=== PATIENT | female | born 1965 | race American Indian/Alaskan Native ===

== ENCOUNTER 2017-10-25 08:37 | Emergency (ER) | payer OTHER ==
--- NOTE | 2017-10-25 08:46 | PDOC ---
History of Present Illness - General Stated Complaint: ABD PAIN Time Seen by Provider: 10/25/17 08:41 History Source: Patient - History of Present Illness Timing/Duration: reports: constant, other (x 1 week) Past History - Past Medical History Allergies/Adverse Reactions: Allergies Allergy/AdvReac Type Severity Reaction Status Date / Time No Known Allergies Allergy Verified 10/25/17 08:50 Home Medications: Ambulatory Orders Cephalexin [Keflex] 500 mg PO BID #14 capsule 10/25/17 Review of Systems - Review of Systems Constitutional: No: Chills, Fever, Malaise, Weakness ABD/GI: No: Nausea, Vomiting : No: Burning, Dysuria, Discharge, Frequency, Flank Pain, Hematuria Musculoskeletal: No: Back Pain *Physical Exam - Physical Exam General Appearance: Yes: Appropriately Dressed. No: Apparent Distress HEENT: positive: Normal Voice Neck: positive: Supple Respiratory/Chest: negative: Respiratory Distress Gastrointestinal/Abdominal: positive: Soft. negative: Tender Musculoskeletal: negative: CVA Tenderness Integumentary: positive: Dry, Warm Neurologic: positive: Fully Oriented, Alert, Normal Mood/Affect ED Treatment Course - LABORATORY CBC & Chemistry Diagram: 10/25/17 09:05 10/25/17 09:05 Medical Decision Making - Medical Decision Making 10/25/17 08:45 52-year-old female status post BAYLEE-BSO w/ chemo/XRT for ovarian cancer in 2007 while in [facility], brought in by family for foul odor to urine 1 week. No dysuria , frequency, hematuria, abdominal, flank pain, nausea, vomiting, fever or chills. Patient states she feels well otherwise See exam R/o UTI -labs -ua -cx 10/25/17 10:22 Labs unremarkable. us w/ 2+ bld and <1 WBC. As patient symptomatic, will treat. Urine culture sent. Return precautions given. Patient to follow-up with PMD this week *DC/Admit/Observation/Transfer Diagnosis at time of Disposition: Foul smelling urine - Discharge Dispostion Disposition: HOME Condition at time of disposition: Good - Prescriptions Prescriptions: Cephalexin [Keflex] 500 mg PO BID #14 capsule - Referrals - Patient Instructions Printed Discharge Instructions: DI for Urinary Tract Infection (UTI) Additional Instructions: Take antibiotics as prescribed and follow-up with your doctor this week. - Post Discharge Activity
[2017-10-25 09:00] VITALS: BMI 27.4
[2017-10-25 09:28] LABS: BASOPHIL 0.6 % (0-2.0); EOSINOPHIL 2.3 % (0-4.5); MCHC 33.4 g/dl (32.0-36.0); MEAN CELL VOLUME 83.8 fl (80-96); MEAN PLT VOLUME 7.5 fl (7.5-11.1); NEUTROPHILS 70.9 % (42.8-82.8); PLATELET COUNT 283 K/MM3 (134-434); RDW 14.1 % (11.6-15.6); WHITE BLOOD COUNT 9.6 K/mm3 (4.0-10.0)
[2017-10-25 09:30] LABS: URINE APPEARANCE CLEAR; URINE BILIRUBIN NEGATIVE (NEGATIVE); URINE BLOOD 2+ (NEGATIVE); URINE COLOR LTYELLOW; URINE GLUCOSE (UA) NEGATIVE (NEGATIVE); URINE KETONE NEGATIVE (NEGATIVE); URINE LEUK ESTERASE NEGATIVE (NEGATIVE); URINE NITRITE NEGATIVE (NEGATIVE); URINE PROTEIN NEGATIVE (NEGATIVE); URINE UROBILINOGEN NEGATIVE mg/dL (0.2-1.0)
[2017-10-25 09:33] LABS: URINE MUCUS RARE; URINE RBC <1 /hpf (0-3); URINE WBC <1 /hpf (3-5)
[2017-10-25 09:54] LABS: ALBUMIN 3.7 g/dl (3.4-5.0); ANION GAP 6 (8-16); BILIRUBIN,TOTAL 0.5 mg/dL (0.2-1.0); CO2 29 mmol/L (21-32); CREATININE 0.8 mg/dL (0.55-1.02); GLUCOSE,RANDOM 101 mg/dL (74-106); SGOT/AST 16 U/L (15-37); SGPT/ALT 23 U/L (12-78); TOT PROT 7.5 g/dl (6.4-8.2)
[2017-10-25 09:55] LABS: ALK PHOS 88 U/L (45-117)
[2017-10-25 10:35] VITALS: BP 133/81; PULSE 77; TEMP 97.7
[2017-10-25 14:12] LABS: URINE LEUK ESTERASE NEGATIVE (NEGATIVE)
== END 2017-10-25 10:35 | disposition home or self-care (01) ==
LOC: JER 08:37
DX: R82.90 Unspecified abnormal findings in urine (principal); Z85.43 Personal history of malignant neoplasm of ovary
CPT/HCPCS: 36415; 80053; 81003; 81015; 85025; 87086; 99283-25

== ENCOUNTER 2018-04-11 17:05 | Emergency (ER) | payer OTHER ==
[2018-04-11 17:15] VITALS: BP 129/77; PULSE 84; TEMP 98.2; BMI 21.7
--- NOTE | 2018-04-11 17:50 | PDOC ---
History of Present Illness - General Chief Complaint: Pain Stated Complaint: FACIAL PAIN Time Seen by Provider: 04/11/18 17:38 History Source: Patient, Family (daugther translated per mother request) Exam Limitations: No Limitations (R upper tooth pain X 1wk) Past History - Travel Traveled outside of the country in the last 30 days: No Close contact w/someone who was outside of country & ill: No - Past Medical History Allergies/Adverse Reactions: Allergies Allergy/AdvReac Type Severity Reaction Status Date / Time No Known Allergies Allergy Verified 04/11/18 17:11 Home Medications: Ambulatory Orders Acetaminophen [Tylenol] 650 mg PO ASDIR 04/11/18 Amoxicillin/Potassium Clav [Augmentin 875-125 Tablet] 1 each PO BID 10 Days #20 tablet 04/11/18 Famotidine 20 mg PO ASDIR 04/11/18 Simvastatin 40 mg PO ASDIR 04/11/18 Cancer: Yes (uterine) COPD: No Hypercholesterolemia: Yes Thyroid Disease: No - Suicide/Smoking/Psychosocial Hx Smoking History: Never smoked Have you smoked in the past 12 months: No Hx Alcohol Use: No Drug/Substance Use Hx: No Substance Use Type: None Review of Systems - Review of Systems Able to Perform ROS?: Yes Is the patient limited [place] proficient: No Constitutional: No: Chills, Fever HEENTM: Yes: Mouth Pain, Other (dental pain). No: Ear Pain, Throat Swelling, Mouth Swelling Cardiac (ROS): No: Chest Pain *Physical Exam - Vital Signs Last Vital Signs Temp Pulse Resp BP Pulse Ox 98.2 F 84 19 129/77 100 04/11/18 17:11 04/11/18 17:11 04/11/18 17:11 04/11/18 17:11 04/11/18 17:11 - Physical Exam General Appearance: Yes: Nourished HEENT: positive: Other (carious tooth in upper molar region, no abscess noted) Respiratory/Chest: positive: Lungs Clear, Normal Breath Sounds Cardiovascular: positive: Regular Rhythm, Regular Rate Neurologic: positive: Fully Oriented, Alert Medical Decision Making - Medical Decision Making 04/11/18 17:59 52y/o F with tooth ariadna X 1wk, denies f/c exam consistent with dental caries, Rx for augmentin, dental f/u recommended OTC motrin prn pain *DC/Admit/Observation/Transfer Diagnosis at time of Disposition: Dental caries - Discharge Dispostion Disposition: HOME Condition at time of disposition: Stable Decision to Admit order: No - Prescriptions Prescriptions: Amoxicillin/Potassium Clav [Augmentin 875-125 Tablet] 1 each PO BID 10 Days #20 tablet - Referrals Referrals: Feliz Dewey MD [Primary Care Provider] - - Patient Instructions Additional Instructions: You may call [facility] [phone] or [phone] for a dental appointment. - Post Discharge Activity
== END 2018-04-11 18:16 | disposition home or self-care (01) ==
LOC: JERFT 17:05
DX: K02.9 Dental caries, unspecified (principal)
CPT/HCPCS: 99281-25